=== PATIENT | male | born 1955 | race Caucasian/White ===

== ENCOUNTER 2019-04-26 15:09 | Emergency (ER) | payer MEDICARE, OTHER ==
[2019-04-26 15:17] VITALS: TEMP 98.7
[2019-04-26] MEDS ORDERED: ORPHENADRINE 30 MG/ML 2 ML VIAL IVP STA (15:23)
[2019-04-26] MEDS ORDERED: KETOROLAC 30 MG/ML 1 ML VIAL IVP STA (15:23)
[2019-04-26] MEDS ORDERED: HYDROmorphone 1 MG/ML 1 ML SYRINGE IVP STA (15:23)
[2019-04-26 15:54] LABS: Appearance,Urine Clear (Clear); Bilirubin,Urine Negative (Negative); Blood,Urine Negative (Negative); Color,Urine Yellow; Glucose,Urine (UA) Negative (Negative); Ketones,Urine Negative (Negative); Leukocyte Esterase,Urine Negative (Negative); Nitrite,Urine Negative (Negative); Protein,Urine Negative (Negative); Specific Gravity,Urine 1.019 (1.001-1.035); Urobilinogen,Urine <2.0 mg/dL (<2.0)
--- NOTE | 2019-04-26 16:03 | XR ---
EXAMINATION TYPE: XR lumbar spine 2 or 3V DATE OF EXAM: 04/26/2019 CLINICAL HISTORY: Right-sided low back pain after injury today TECHNIQUE: Frontal and lateral images of the lumbar spine are obtained. COMPARISON: MRI of the lumbar spine dated 07/18/2016 FINDINGS: There is a mild levoscoliosis of the lumbar spine. Overall vertebral body heights appear ma intained of the lumbar spine. Moderate multilevel degenerative disc disease is seen as anterior osteo phytes and facet arthropathy with intervertebral disc space narrowing and endplate sclerosis. T12 jacquie tebral body is suboptimally evaluated for compression fracture given the obliquity from the scoliosis . Diffuse osseous demineralization is present. Cholecystectomy clips are seen. IMPRESSION: No acute fracture or malalignment of the lumbar spine. Levoscoliosis evaluation for verte bral body height of the T12 vertebral body limited. Moderate multilevel degenerative disc disease and generalized osseous demineralization.
--- NOTE | 2019-04-26 16:25 | ED ---
Back Pain HPI - General Chief Complaint: Back Pain/Injury Stated Complaint: Back pain Time Seen by Provider: 04/26/19 15:18 Source: patient, EMS, RN notes reviewed Limitations: no limitations - History of Present Illness Initial Comments: 63-year-old male presents emergency Department chief complaint low back pain. Patient states he is walking and felt a pop in his right low back. Patient states she has no bowel bladder incontinence or retention. Denies any saddle anesthesias or lower shunted paresthesias. Patient states pain does not radiate down his leg. Patient states that any movement makes pain worse. He does have a history of back pain states he used to be on pain meds. Patient has diarrhea, constipation, fever, chills. Patient believes he may have a urinary tract infection though his been taken old and antibiotics for last 4-5 days. - Related Data Previous Rx's Medication Instructions Recorded Cyclobenzaprine [Flexeril] 10 mg PO TID PRN #15 tab 04/26/19 HYDROcodone/APAP 7.5-325MG [[place] 1 tab PO Q6HR PRN 3 Days #12 tab 04/26/19 7.5-325] Ibuprofen [Motrin] 600 mg PO Q8HR PRN #30 tab 04/26/19 Allergies Allergy/AdvReac Type Severity Reaction Status Date / Time No Known Allergies Allergy Verified 04/26/19 15:16 Review of Systems ROS Statement: Those systems with pertinent positive or pertinent negative responses have been documented in the HPI. ROS Other: All systems not noted in ROS Statement are negative. Past Medical History Past Medical History: Chest Pain / Angina Additional Past Medical History / Comment(s): Back problems History of Any Multi-Drug Resistant Organisms: None Reported Past Surgical History: Cholecystectomy Past Psychological History: No Psychological Hx Reported Smoking Status: Never smoker Past Alcohol Use History: Daily Past Drug Use History: None Reported General Exam Limitations: no limitations General appearance: alert, in no apparent distress Head exam: Present: atraumatic, normocephalic, normal inspection Respiratory exam: Present: normal lung sounds bilaterally. Absent: respiratory distress, wheezes, rales, rhonchi, stridor Cardiovascular Exam: Present: regular rate, normal rhythm, normal heart sounds. Absent: systolic murmur, diastolic murmur, rubs, gallop, clicks GI/Abdominal exam: Present: soft, normal bowel sounds. Absent: distended, tenderness, guarding, rebound, rigid Extremities exam: Present: normal inspection, full ROM, normal capillary refill, other (Motrin strength equal bilaterally, neurovascular intact equal color equal warmth). Absent: tenderness, pedal edema, joint swelling, calf tenderness Back exam: Present: normal inspection, tenderness, muscle spasm. Absent: full ROM (Decreased range of motion secondary to pain in the right lumbar region), vertebral tenderness Neurological exam: Present: alert, oriented X3 Skin exam: Present: warm, dry, intact, normal color. Absent: rash Course Vital Signs 04/26/19 15:13 Temperature 98.7 F Pulse Rate 79 Respiratory 22 Rate Blood Pressure 128/74 O2 Sat by Pulse 98 Oximetry Medical Decision Making - Medical Decision Making 63-year-old male presented for low back pain. Patient has a lumbar strain. He has no radicular symptoms no red flag symptoms. Patient discharged with pain meds, muscle relaxers patient will follow-up with PCP return for any worsening symptoms. - Lab Data Lab Results 04/26/19 Range/Units 15:45 Urine Color Yellow Urine Appearance Clear (Clear) Urine pH 7.0 (5.0-8.0) Ur Specific [place] 1.019 (1.001-1.035) Urine Protein Negative (Negative) Urine Glucose (UA) Negative (Negative) Urine Ketones Negative (Negative) Urine Blood Negative (Negative) Urine Nitrite Negative (Negative) Urine Bilirubin Negative (Negative) Urine Urobilinogen <2.0 (<2.0) mg/dL Ur Leukocyte Esterase Negative (Negative) Disposition Clinical Impression: Strain of lumbar region Disposition: HOME SELF-CARE Condition: Stable Instructions (If sedation given, give patient instructions): Acute Low Back Pa in (ED) Additional Instructions: Please return to the Emergency Department if symptoms worsen or any other concerns. Prescriptions: Cyclobenzaprine [Flexeril] 10 mg PO TID PRN #15 tab PRN Reason: Muscle Spasm Ibuprofen [Motrin] 600 mg PO Q8HR PRN #30 tab PRN Reason: Pain HYDROcodone/APAP 7.5-325MG [[place] 7.5-325] 1 tab PO Q6HR PRN 3 Days #12 tab PRN Reason: pain Is patient prescribed a controlled substance at d/c from ED?: Yes When asked, does pt state using other controlled substances?: No If prescribed controlled substance>3 days was MAPS reviewed?: Prescribed <3 Days If opioid is for acute pain is fill amount 7 days or less?: Yes If Rx opioid, was Start Talking consent form obtained?: Yes Referrals: Andreina Peña MD [REFERRING] - 1-2 days Mika Aragon DO [Doctor of Osteopathic Medicine] - 1-2 days Time of Disposition: 16:20
[2019-04-26 16:46] VITALS: BP 148/89; PULSE 76; RESP 18
== END 2019-04-26 16:46 | disposition home or self-care (01) ==
LOC: EC 15:09
DX: S39.012A Strain of muscle, fascia and tendon of lower back, initial encounter (principal); R19.7 Diarrhea, unspecified; R50.9 Fever, unspecified; X58.XXXA Exposure to other specified factors, initial encounter
CPT/HCPCS: 81003; 72100; 99284; 96374; 96375 ×2; J2360; J1885; J1170

== ENCOUNTER 2022-08-07 10:29 | Observation (INO) | payer MEDICARE ==
[2022-08-07] MEDS ORDERED: NITROGLYCERIN SL TABS 0.4 MG TAB SUBLINGUAL STA ×3 (11:07)
--- NOTE | 2022-08-07 11:10 | ED ---
General Adult HPI - General Chief complaint: Chest Pain Stated complaint: Chest pain Time Seen by Provider: 08/07/22 10:59 Source: patient, RN notes reviewed, old records reviewed Mode of arrival: wheelchair Limitations: no limitations - History of Present Illness Initial comments: Patient is a 66-year-old male who presents emergency Department complaining of chest pain. Patient was shoveling snow this morning, approximately 1/2 inch to 1 inch and brushing this no off of his car when he had onset of substernal and left-sided chest pain. Does have a history of angina as well as a thoracic aneurysm. No history of cardiac disease otherwise. No history of stenting. States he has had this previously, but states he felt a little bit different tod ay about the severity so he wanted to come in today to get evaluated. States normally just goes away on its own. States it was worse earlier at 9 out of 10 and is currently a 6 or 7 out of 10. He describes as a achy, sharp, pressure. Poorly described. Does not radiate to the back, shoulder blades, arms. Denies any diaphoresis was started. Denies any nausea or vomiting. Presents for further evaluation at this time. States he is nervous. - Related Data Previous Rx's Medication Instructions Recorded Cyclobenzaprine [Flexeril] 10 mg PO TID PRN #15 tab 04/26/19 HYDROcodone/APAP 7.5-325MG [[place] 1 tab PO Q6HR PRN 3 Days #12 tab 04/26/19 7.5-325] Ibuprofen [Motrin] 600 mg PO Q8HR PRN #30 tab 04/26/19 Allergies Allergy/AdvReac Type Severity Reaction Status Date / Time No Known Allergies Allergy Verified 08/07/22 10:36 Review of Systems ROS Statement: Those systems with pertinent positive or pertinent negative responses have been documented in the HPI. Review of Systems: CONST: Denies fever EYES: Denies blurry vision ENT: Denies nasal congestion C/V: Endorses chest pain RESP: Denies shortness of breath GI: Denies abdominal pain : Denies dysuria SKIN: Denies rash. MSK: Denies joint pain. NEURO: Denies headache ROS Other: All systems not noted in ROS Statement are negative. Past Medical History Past Medical History: Chest Pain / Angina Additional Past Medical History / Comment(s): Back problems, aortic aneurysm. History of Any Multi-Drug Resistant Organisms: None Reported Past Surgical History: Cholecystectomy Past Psychological History: No Psychological Hx Reported Smoking Status: Never smoker Past Alcohol Use History: Daily Past Drug Use History: None Reported General Exam - General Exam Comments Initial Comments: General: Appears in no acute distress. HEAD: Normal with no signs of head trauma. EYES: PERRLA, EOMI, conjunctiva normal, no discharge. ENT: Hearing grossly intact, normal oropharynx. RESPIRATORY: Clear breath sounds bilaterally. No wheezes, rales, or rhonchi. C/V: Regular rate and rhythm. S1 and S2 auscultated, no edema, peripheral pulses 2+ and intact throughout ABD: Abd is soft, nontender, nondistended EXT: Normal range of motion, no obvious deformity SKIN: No rashes or lesions observed on exposed skin. NEURO: Alert and oriented 4. No focal deficits. Limitations: no limitations Course Vital Signs 08/07/22 08/07/22 08/07/22 10:33 11:04 11:53 Temperature 98.2 F 97.5 F L Pulse Rate 92 70 101 H Respiratory 16 16 26 H Rate Blood Pressure 115/82 144/95 116/85 O2 Sat by Pulse 98 99 100 Oximetry 08/07/22 13:09 Temperature Pulse Rate 77 Respiratory 18 Rate Blood Pressure 141/87 O2 Sat by Pulse 97 Oximetry Medical Decision Making - Medical Decision Making Based on the patient's presentation and physical exam, I'm concerned for cardiopulmonary etiology for the patient's current symptoms. He does have a history of thoracic aneurysm I cannot rule out aortic catastrophe at this time and therefore recommend that we obtain a CT angiogram of the aorta. This is in addition to cardiac workup including troponin, EKG, chest x-ray. Patient was in agreement this plan. Aspirin will be held at this time, as I would like to first evaluate for dissection. However we will administer nitroglycerin tablets to see if that has any effect on his pain. Does have history of angina. Has not taken nitro and multiple years. Patient was in agreement this plan. Vital signs are within acceptable limits. EKG shows no signs of acute ischemia.Patient has stated that he believes his aneurysm measurement is approximately 4.3 cm and it has been stable. No plans for intervention at this time. Patient received nitroglycerin tablets, dispensed a mild decrease in blood pressure but states he felt worse with it. We will not administer any further tablets. Patient improved after some time. He does appear anxious and will provide him with a dose of Ativan to see if it helps with his symptoms. He was in agreement this plan. Chest x-ray as interpreted by myself reveals no evidence of acute cardiopulmonary process, infiltrate. Laboratory studies are remarkable for an undetectable troponin.The remainder the patient's laboratory studies are unremarkable. CT angiogram is interpreted by myself reveals an ascending thoracic aneurysm. Radiology meshed it to be 4.4 cm. Patient states that was previously 4.3 cm. This is unchanged. No signs of aortic catastrophe at this time. On reevaluation come patient is feeling improved. I did update him on the results of his workup. Patient's heart score is moderate at 4, and therefore would like to admit him to cardiac observation telemetry. He was in agreement with this plan. I spoke with the admitting [facility] Tawanda physician who accepted the patient. Cardiology was consulted. Echo was ordered. Patient was given an aspirin 324 mg. - Lab Data Result diagrams: 08/07/22 11:18 08/07/22 11:18 Lab Results 08/07/22 08/07/22 08/07/22 Range/Units 11:18 11:18 11:18 WBC 6.5 (3.8-10.6) k/uL RBC 4.88 (4.30-5.90) m/uL Hgb 15.1 (13.0-17.5) gm/dL Hct 43.9 (39.0-53.0) % MCV 90.0 (80.0-100.0) fL MCH 30.8 (25.0-35.0) pg MCHC 34.3 (31.0-37.0) g/dL RDW 12.9 (11.5-15.5) % Plt Count 182 (150-450) k/uL MPV 7.8 Neutrophils % 77 % Lymphocytes % 16 % Monocytes % 5 % Eosinophils % 0 % Basophils % 1 % Neutrophils # 5.0 (1.3-7.7) k/uL Lymphocytes # 1.1 (1.0-4.8) k/uL Monocytes # 0.3 (0-1.0) k/uL Eosinophils # 0.0 (0-0.7) k/uL Basophils # 0.0 (0-0.2) k/uL PT 10.3 (9.0-12.0) sec INR 1.0 (<1.2) APTT 26.4 (22.0-30.0) sec Sodium 139 (137-145) mmol/L Potassium 4.4 (3.5-5.1) mmol/L Chloride 107 (98-107) mmol/L Carbon Dioxide 25 (22-30) mmol/L Anion Gap 7 mmol/L BUN 11 (9-20) mg/dL Creatinine 0.87 (0.66-1.25) mg/dL Est GFR (CKD-EPI)AfAm >90 (>60 ml/min/1.73 sqM) Est GFR (CKD-EPI)NonAf 89 (>60 ml/min/1.73 sqM) Glucose 95 (74-99) mg/dL Calcium 9.1 (8.4-10.2) mg/dL Magnesium 1.9 (1.6-2.3) mg/dL Total Bilirubin 1.1 (0.2-1.3) mg/dL AST 33 (17-59) U/L ALT 20 (4-49) U/L Alkaline Phosphatase 64 (38-126) U/L Troponin I (0.000-0.034) ng/mL Total Protein 7.2 (6.3-8.2) g/dL Albumin 4.5 (3.5-5.0) g/dL 08/07/22 Range/Units 11:18 WBC (3.8-10.6) k/uL RBC (4.30-5.90) m/uL Hgb (13.0-17.5) gm/dL Hct (39.0-53.0) % MCV (80.0-100.0) fL MCH (25.0-35.0) pg MCHC (31.0-37.0) g/dL RDW (11.5-15.5) % Plt Count (150-450) k/uL MPV Neutrophils % % Lymphocytes % % Monocytes % % Eosinophils % % Basophils % % Neutrophils # (1.3-7.7) k/uL Lymphocytes # (1.0-4.8) k/uL Monocytes # (0-1.0) k/uL Eosinophils # (0-0.7) k/uL Basophils # (0-0.2) k/uL PT (9.0-12.0) sec INR (<1.2) APTT (22.0-30.0) sec Sodium (137-145) mmol/L Potassium (3.5-5.1) mmol/L Chloride (98-107) mmol/L Carbon Dioxide (22-30) mmol/L Anion Gap mmol/L BUN (9-20) mg/dL Creatinine (0.66-1.25) mg/dL Est GFR (CKD-EPI)AfAm (>60 ml/min/1.73 sqM) Est GFR (CKD-EPI)NonAf (>60 ml/min/1.73 sqM) Glucose (74-99) mg/dL Calcium (8.4-10.2) mg/dL Magnesium (1.6-2.3) mg/dL Total Bilirubin (0.2-1.3) mg/dL AST (17-59) U/L ALT (4-49) U/L Alkaline Phosphatase (38-126) U/L Troponin I <0.012 (0.000-0.034) ng/mL Total Protein (6.3-8.2) g/dL Albumin (3.5-5.0) g/dL - EKG Data -: EKG Interpreted by Me EKG Comments: 12-lead Electrocardiogram Interpretation Note EKG was reviewed and interpreted by myself. 12-lead ECG performed at 1044 is interpreted by me as revealing normal sinus rhythm at a rate of 68 beats per minute. [place] is normal. OR interval is 152 ms, QRS duration is 114 ms, QTc is 428 ms.. There were no ST or T wave abnormalities to suggest myocardial ischemia or injury. R wave progression across the precordium was satisfactory. By my interpretation this EKG is non-diagnostic for acute ischemia. No prior EKG for comparison. Disposition Clinical Impression: Chest pain, Thoracic ascending aortic aneurysm Disposition: ADMITTED IP TO THIS HOSP Condition: Stable Referrals: Low Bolanos NPC [Family Provider] - 1-2 days Time of Disposition: 13:35
[2022-08-07] MEDS ORDERED: LORazepam 0.5 MG TAB PO STA (11:40)
[2022-08-07 11:56] LABS: ALT 20 U/L (4-49); AST 33 U/L (17-59); African American GFR (CKD) >90 (>60 ml/min/1.73 sqM); Albumin 4.5 g/dL (3.5-5.0); Alkaline Phosphatase 64 U/L (38-126); Anion Gap 7 mmol/L; Blood Urea Nitrogen 11 mg/dL (9-20); Calcium 9.1 mg/dL (8.4-10.2); Carbon Dioxide 25 mmol/L (22-30); Chloride 107 mmol/L (98-107); Glucose 95 mg/dL (74-99); Magnesium 1.9 mg/dL (1.6-2.3); Non-African American GFR(CKD) 89 (>60 ml/min/1.73 sqM); Potassium 4.4 mmol/L (3.5-5.1); Sodium 139 mmol/L (137-145); Total Bilirubin 1.1 mg/dL (0.2-1.3); Total Protein 7.2 g/dL (6.3-8.2)
[2022-08-07 11:59] LABS: Partial Thromboplastin Time 26.4 sec (22.0-30.0); Prothrombin Time 10.3 sec (9.0-12.0)
[2022-08-07 12:12] LABS: Basophils % (A) 1 %; Eosinophils % (A) 0 %; HCT 43.9 % (39.0-53.0); HGB 15.1 gm/dL (13.0-17.5); Lymphocytes # (A) 1.1 k/uL (1.0-4.8); Lymphocytes % (A) 16 %; MCH 30.8 pg (25.0-35.0); MCHC 34.3 g/dL (31.0-37.0); Mean Platelet Volume 7.8; Monocytes # (A) 0.3 k/uL (0-1.0); Monocytes % (A) 5 %; Neutrophils % (A) 77 %; Platelet Count 182 k/uL (150-450); RBC 4.88 m/uL (4.30-5.90); RDW 12.9 % (11.5-15.5); WBC 6.5 k/uL (3.8-10.6)
--- NOTE | 2022-08-07 12:29 | XR ---
EXAMINATION TYPE: XR chest 2V DATE OF EXAM: 08/07/2022 12:23 PM COMPARISON: None TECHNIQUE: XR chest 2V Frontal and lateral views of the chest. CLINICAL INDICATION:Male, 66 years old with history of Chest Pain; FINDINGS: Lungs/Pleura: There is no evidence of pleural effusion, focal consolidation, or pneumothorax. Pulmonary vascularity: Unremarkable. Heart/mediastinum: Cardiomediastinal silhouette is unremarkable. Musculoskeletal: No acute osseous pathology. IMPRESSION: No acute cardiopulmonary disease/process.
--- NOTE | 2022-08-07 13:16 | CT ---
EXAMINATION TYPE: CT angio thor/abd pel aorta CT DLP: 2070.6 mGycm, Automated exposure control for dose reduction was used. DATE OF EXAM: 08/07/2022 12:31 PM COMPARISON: . CLINICAL INDICATION:Male, 66 years old with history of history of thoracic aneurysm, eval for dissect io, history of thoracic aneurysm, eval for dissection TECHNIQUE: Dissection protocol: Multiple axial CT images of the chest, abdomen, and pelvis were obtai matheus prior and to the administration of IV contrast. 3-D reformats and maximum intensity projection fo rmat were performed on a separate workstation. Contrast used:100 mL of Isovue 370 without and with IV Contrast, Oral contrast used: FINDINGS: ARTERIAL VASCULATURE: No evidence for intramural hematoma on noncontrast imaging. The ascending thora cic aorta measures up to 4.4 cm with smooth tapering. Vessels of the aortic arch are patent. The desc ending thoracic aorta and into abdominal aorta are within normal limits for size. The major vessels o f the abdominal aorta are patent. No evidence of intimal flap or dissection. The common iliac arterie s and external iliac arteries are patent. PULMONARY ARTERIAL VASCULATURE: Normal caliber. No evidence of filling defect to suggest pulmonary em bolus. VENOUS SYSTEM: Unremarkable. Lungs/pleura: The lung parenchyma appears unremarkable. No focal consolidation, pneumothorax or pleu ral effusion. Heart: mildly enlarged for size. Mediastinum: No gross evidence of adenopathy. Lower Neck: No significant findings. Abdomen: Liver: Unremarkable. Gallbladder and Bile ducts: Gallbladder surgically absent. Pancreas: Unremarkable. Spleen: Unremarkable. Adrenal glands: Unremarkable. Kidneys and Ureters: Right renal cyst. No hydronephrosis. Bladder: Unremarkable. Reproductive: Unremarkable. Stomach and Bowel: Moderate stool burden throughout the colon. No evidence of bowel obstruction. Appe ndix is normal. Peritoneum: No evidence of pneumoperitoneum, free fluid, or adenopathy. Musculoskeletal: The osseous structures appear intact. Multilevel disc degeneration and facet joint a rthropathy throughout the spine with mild scoliosis changes. Lymph nodes: No evidence of lymphadenopathy. Abdominal wall/soft tissues: Unremarkable. IMPRESSION: 1. No evidence for thoracic aortic dissection. 2. Mild ectasia of the ascending thoracic aorta measuring up to 44 mm. 3. Mild atherosclerosis. 4. Moderate to large stool burden throughout the colon. 5. Mild cardiomegaly.
[2022-08-07] MEDS ORDERED: ASPIRIN 81 MG PO STA (13:45)
[2022-08-07] MEDS ORDERED: NALOXONE 0.4 MG/ML 1 ML VIAL IV PRN (13:46)
[2022-08-07] MEDS ORDERED: bisacodyL 5 MG TABLET.DR PO STA (14:12)
--- NOTE | 2022-08-07 14:47 | P.HPIM ---
History of Present Illness H&P Date: 08/07/22 History of Presenting Illness: Patient is a very pleasant 66-year-old male with a past medical history of angina, hyperlipidemia and ascending thoracic aneurysm with most recent measurement known to patient at 4.3 cm follows up outpatient with his PCP niko redman. Patient presented to the emergency department with a chief complaint of chest pain/pressure. Patient reports he was shoveling snow this morning and cleaning the snow off of his car when he began having an acute onset left anterior chest pain. Patient describes this pain as being heavy and sharp. He denied any radiation of pain, denied anything making it better or worse, he denied any associated symptoms including dizziness, lightheadedness, diaphoresis, palpitations, shortness of breath, nausea, or experiencing any numbness/tingling/weakness in his extremities. Patient came to the ER for evaluation and upon arrival vital signs unremarkable with blood pressure 115/82, heart rate 92, respiratory rate 16, and SpO2 of 98% on room air. He underwent full evaluation. CBC, coags, and CMP completed and upon review were unremarkable. Troponin less than 0.012. EKG reviewed showing NSR at 68 bmp with no noted T-wave or ST abnormalities showing no signs of acute ischemia, CXR neg, CTA confirming previously known ascending thoracic aortic aneurysm measuring up to 44 mm, mild atherosclerosis, mild cardiomegaly and moderate to large stool burden throughout the colon. Patient was given aspirin and sublingual nitroglycerin in the emergency department. After administration of nitroglycerin patient had episode of tachypnea and tachycardia and reported feeling worsening pain and patient was reportedly given Ativan resulting in improvement of pain, tachypnea, and tachycardia back to baseline. Patient admitted under our services with consultation to cardiology. Review of systems: Pertinent positives and negatives as discussed in HPI, a complete review of systems was performed and all other systems are negative. Physical exam: Vital signs reviewed and stable. General: Nontoxic, no distress and appears stated age. Derm: Skin warm and dry, normal coloration for ethnicity. Head: Atraumatic, normocephalic and symmetric. Eyes: EOMs intact, no lid lag, and anicteric sclera Mouth: no lip lesions, mucus membranes moist Cardiovascular: regular rate and rhythm with normal S1S2, no murmur, positive posterior tibial pulses bilaterally, and cap refill < 2 seconds. Lungs: Respirations even, regular, and unlabored on room air. Lungs CTA bilaterally, no rhonchi, no rales, no wheezing, and no accessory muscle usage. Abdominal: soft, nontender to palpation, no guarding, no appreciable orga nomegaly Ext: ROM intact. No gross muscle atrophy, no edema, no contractures Neuro: Speech clear, face symmetrical and CN II-XII grossly intact with no noted focal neuro deficits Psych: Alert and oriented to person, place, time, and situation. Appropriate and pleasant affect. Assessment and Plan of Care: Chest pain, rule out acute coronary event Hyperlipidemia Ascending thoracic aortic aneurysm -Cardiology consulted, appreciate further recommendations -Telemetry monitoring -Trend troponins -Cardiac diet, NPO at midnight -Continue cardiac medication regimen with aspirin, atorvastatin, -Lipid profile with a.m. labs. -Echocardiogram -Patient to follow up outpatient with cardiothoracic surgery for long-term monitoring/management of ascending aortic aneurysm. The patient is admitted with an anticipated less than 2 midnight stay for evaluation of chest pain CODE STATUS: Full code DVT prophylaxis: Heparin Discussed with: Patient, emergency physician and RN Anticipated discharge date: 1-[address]: Home A total of 45 minutes was spent on the care of this complex patient more than 50% of the time was spent in counseling and care coordination. Maurizio Vieira NP rendered care for this patient independently, reviewed the findings and plan as documented in the note above. I did not physically speak with or examine the patient on this date. Past Medical History Past Medical History: Chest Pain / Angina Additional Past Medical History / Comment(s): Back problems, aortic aneurysm. History of Any Multi-Drug Resistant Organisms: None Reported Past Surgical History: Cholecystectomy Past Psychological History: No Psychological Hx Reported Smoking Status: Never smoker Past Alcohol Use History: Daily Past Drug Use History: None Reported Medications and Allergies Home Medications Medication Instructions Recorded Confirmed Type Loperamide HCl [Imodium A-D] 2 mg PO QID PRN 08/07/22 08/07/22 History Rosuvastatin Calcium 5 mg PO HS 08/07/22 08/07/22 History Simethicone [Gas-X] 125 mg PO ACHS PRN 08/07/22 08/07/22 History Allergies Allergy/AdvReac Type Severity Reaction Status Date / Time No Known Allergies Allergy Verified 08/07/22 13:57 Physical Exam Osteopathic Statement: *. No significant issues noted on an osteopathic structural exam other than those noted in the History and Physical/Consult. Vitals: Vital Signs Temp Pulse Resp BP Pulse Ox 08/07/22 13:09 77 18 141/87 97 08/07/22 11:53 101 H 26 H 116/85 100 08/07/22 11:04 97.5 F L 70 16 144/95 99 08/07/22 10:33 98.2 F 92 16 115/82 98 Intake and Output 08/06/22 08/07/22 08/07/22 22:59 06:59 14:59 Other: Weight 99.79 kg Results CBC & Chem 7: 08/07/22 11:18 08/07/22 11:18
[2022-08-07] MEDS: HEPARIN SODIUM,PORCINE/PF 5,000 UNIT/0.5 ML SYRINGE SQ SCH ×2 (15:39→23:59)
[2022-08-07] MEDS: ATORVASTATIN 10 MG TAB PO SCH (20:41)
[2022-08-08] MEDS ORDERED: CAFFEINE CITRATE 60 MG/3 ML VIAL IV PRN (08:19)
[2022-08-08] MEDS ORDERED: AMINOPHYLLINE 500 MG/20 ML VIAL IV PRN (08:19)
[2022-08-08] MEDS ORDERED: REGADENOSON 0.4 MG/5 ML SYRINGE IV PRN (08:19)
[2022-08-08] MEDS ORDERED: ASPIRIN 81 MG PO SCH (09:00)
[2022-08-08 09:06] LABS: Basophils # (A) 0.03 X 10*3/uL (0.00-0.10); Basophils % (A) 0.4 %; Eosinophils # (A) 0.01 X 10*3/uL (0.04-0.35); Eosinophils % (A) 0.1 %; HCT 44.2 % (39.6-50.0); HGB 14.9 g/dL (13.0-17.0); Immature Grans, Automated 0.3 %; Lymphocytes # (A) 1.44 X 10*3/uL (0.90-5.00); Lymphocytes % (A) 20.5 %; MCH 30.1 pg (27.0-32.0); MCHC 33.7 g/dL (32.0-37.0); MCV 89.3 fL (80.0-97.0); Mean Platelet Volume 9.6 fL (9.5-12.2); Monocytes % (A) 7.1 %; NRBC Per 100 WBC 0 /100 WBCS (0.0-0.0); Neutrophils # (A) 5.01 X 10*3/uL (1.80-7.70); Neutrophils % (A) 71.6 %; Platelet Count 171 X 10*3/uL (140-440); RBC 4.95 X 10*6/uL (4.40-5.60); RDW 12.4 % (11.5-14.5); WBC 7.01 X 10*3/uL (4.50-10.00)
[2022-08-08 09:07] LABS: African American GFR (CKD) 101.4 (60.0-200.0); Anion Gap 9.2 mmol/L (10.00-18.00); BUN/Creat Ratio 12.67 Ratio (12.00-20.00); Blood Urea Nitrogen 11.4 mg/dL (9.0-27.0); Calcium 9.3 mg/dL (8.7-10.3); Carbon Dioxide 24.8 mmol/L (20.0-27.5); Non-African American GFR(CKD) 87.5 (60.0-200.0); Potassium 4.4 mmol/L (3.5-5.5)
--- NOTE | 2022-08-08 10:45 | P.CRDCN ---
History of Present Illness Consult date: 08/08/22 Consult reason: chest pain History of present illness: History of present illness: This is a 66-year-old male with past medical history of hyperlipidemia. Patient has history of seeing a yard worker approximately 4-5 years ago. He complains of dizziness and soreness in the left side of his chest which he has had for at least 5 years and had evaluated. He states he saw a yard worker and the EKG was done and he was scheduled for an MRI. He denies having a recent stress test or cardiac catheterization. He denies any change in the chest pain or dizziness. He does not check his blood pressure at home. EKG sinus rhythm with no acute ST changes Chest x-ray reveals no acute cardio pulmonary process CT angiogram of the aorta revealed no evidence of thoracic aortic dissection. 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 Mild atherosclerosis. Moderate to large stool burden. Mild cardiomegaly. CBC is unremarkable. Electrolytes and renal function within normal limits. Troponin negative 3 Home cardiac medications: Rosuvastatin 5 mg at bedtime Review Of Systems: At the time of my evaluation Constitutional: No fever, no chills. No weakness, fatigue or lethargy. EENT: No headache. No dizziness. Lungs: No shortness of breath, cough, no sputum production. No wheezing. Cardiovascular: Reports chest pain, no lower extremity edema. No palpitations. No paroxysmal nocturnal dyspnea. No orthopnea. Reports dizziness. No syncopal episodes. Abdominal: No abdominal pain. No nausea, vomiting. No diarrhea. No constipation. No bloody or tarry stools.. No loss of appetite. Musculoskeletal: No myalgias. No muscle weakness, no gait dysfunction, no frequent falls. No back pain. No neck pain. Integumentary: No wounds, no lesions. No rash or pruritus. No unusual bruising. Neurologic: No aphasia. No facial droop. No change in mentation. No head injury. No headache. No paralysis. No paresthesia. Psychiatric: No depression. No anxiety. Endocrine: No abnormal blood sugars. Physical examination: Gen: This is a 66-year-old male. He is resting in bed and appears c omfortable and in no acute distress. VS: Reviewed HEENT: Head is atraumatic, normocephalic. Pupils equal, round. Sclerae is anicteric. NECK: Supple. No JVD. No lymphadenopathy. No thyromegaly. LUNGS: Clear to auscultation. No wheezes or rhonchi. No intercostal retractions. HEART: Regular rate and rhythm. No murmur. ABDOMEN: Soft. Bowel sounds are present. No masses. No tenderness. EXTREMITIES: No pedal edema. No calf tenderness. NEUROLOGICAL: Patient is awake, alert and oriented x3. Cranial nerves 2 through 12 are grossly intact. 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 Thank you kindly for this consultation. Nurse practitioner note has been reviewed, I agree with documented findings and plan of care. Patient was seen and examined. Past Medical History Past Medical History: Chest Pain / Angina Additional Past Medical History / Comment(s): Back problems, aortic aneurysm. History of Any Multi-Drug Resistant Organisms: None Reported Past Surgical History: Cholecystectomy Past Psychological History: No Psychological Hx Reported Smoking Status: Never smoker Past Alcohol Use History: Daily Past Drug Use History: None Reported Medications and Allergies Home Medications Medication Instructions Recorded Confirmed Type Loperamide HCl [Imodium A-D] 2 mg PO QID PRN 08/07/22 08/07/22 History Rosuvastatin Calcium 5 mg PO HS 08/07/22 08/07/22 History Simethicone [Gas-X] 125 mg PO ACHS PRN 08/07/22 08/07/22 History Allergies Allergy/AdvReac Type Severity Reaction Status Date / Time No Known Allergies Allergy Verified 08/07/22 13:57 Physical Exam Vitals: Vital Signs Temp Pulse Pulse Resp BP BP Pulse Ox 08/08/22 01:41 97.6 F 66 12 114/70 96 08/07/22 19:56 97.6 F 66 12 99/60 93 L 08/07/22 14:51 97.6 F 97 18 173/97 97 08/07/22 13:09 77 18 141/87 97 08/07/22 11:53 101 H 26 H 116/85 100 08/07/22 11:04 97.5 F L 70 16 144/95 99 08/07/22 10:33 98.2 F 92 16 115/82 98 Intake and Output 08/07/22 08/08/22 08/08/22 22:59 06:59 14:59 Intake Total 200 Balance 200 Intake: Oral 200 Other: Voiding Method Toilet # Voids 1 2 Results 08/08/22 06:13 08/08/22 06:13 Cardiac Enzymes 08/07/22 08/07/22 08/07/22 Range/Units 11:18 11:18 14:13 AST 33 (17-59) U/L Troponin I <0.012 <0.012 (0.000-0.034) ng/mL 08/07/22 Range/Units 18:28 AST (17-59) U/L Troponin I <0.012 (0.000-0.034) ng/mL Coagulation 08/07/22 Range/Units 11:18 PT 10.3 (9.0-12.0) sec APTT 26.4 (22.0-30.0) sec CBC 08/07/22 Range/Units 11:18 WBC 6.5 (3.8-10.6) k/uL RBC 4.88 (4.30-5.90) m/uL Hgb 15.1 (13.0-17.5) gm/dL Hct 43.9 (39.0-53.0) % Plt Count 182 (150-450) k/uL Comprehensive Metabolic Panel 08/07/22 Range/Units 11:18 Sodium 139 (137-145) mmol/L Potassium 4.4 (3.5-5.1) mmol/L Chloride 107 (98-107) mmol/L Carbon Dioxide 25 (22-30) mmol/L BUN 11 (9-20) mg/dL Creatinine 0.87 (0.66-1.25) mg/dL Glucose 95 (74-99) mg/dL Calcium 9.1 (8.4-10.2) mg/dL AST 33 (17-59) U/L ALT 20 (4-49) U/L Alkaline Phosphatase 64 (38-126) U/L Total Protein 7.2 (6.3-8.2) g/dL Albumin 4.5 (3.5-5.0) g/dL Current Medications Generic Name Dose Route Start Last Admin Trade Name Freq PRN Reason Stop Dose Admin Aspirin 81 mg 08/08/22 09:00 Aspirin 81 Mg PO DAILY LIZETT Atorvastatin Calcium 10 mg 08/07/22 21:00 08/07/22 20:41 Atorvastatin 10 Mg Tab PO 10 mg HS LIZETT Administration Heparin Sodium (Porcine) 5,000 unit 08/07/22 16:00 08/07/22 23:59 Heparin Sodium,Porcine/Pf 5,000 Unit/0.5 Ml Syringe SQ 5,000 unit Q8HR LIZETT Administration Naloxone HCl 0.2 mg 08/07/22 13:46 Naloxone 0.4 Mg/Ml 1 Ml Vial IV Q2M PRN Opioid Reversal Intake and Output 08/07/22 08/08/22 08/08/22 22:59 06:59 14:59 Intake Total 200 Balance 200 Intake: Oral 200 Other: Voiding Method Toilet # Voids 1 2 08/07/22 11:18 08/07/22 11:18
[2022-08-08] MEDS: HEPARIN SODIUM,PORCINE/PF 5,000 UNIT/0.5 ML SYRINGE SQ SCH ×3 (12:07→20:14)
--- NOTE | 2022-08-08 12:14 | CA ---
Exercise Stress Test Report Name: Danilo Mazariegos Exam Date: 08/08/2022 10:31 Exam Location: [place] Stress Ht (in): 75 Wt (lb): 220 BSA: 2.29 Ordering Phys: Joceline Hurst Referring Phys: SEGUNDO, Technologist: Taya Macdonald RDCS Age: 66 Gender: M : 1955 Procedure CPT: Indications: Reflex order-Stress test ICD-10 Codes: Patient History: cp, dm, palpitations Medications: Meds past 24 hrs: Pretest Chest Pain: STRESS TEST Protocol Exercise Duration (min:sec): 04:[address] Depressions (mm): Angina Score: Rodrigues Score: Resting HR (bpm): 71 Peak HR (bpm): 99 Resting BP (mmHg): 149 / 90 Peak BP (mmHg): 121 / 81 MPHR: 152 Target HR: 129 % MPHR: 65 METS: 1.0 Total Dose: Peak Dose: Atropine: Double Product: 59351 BP Response: Stress Termination: Stress Symptoms: Stress Summary: ECG ANALYSIS Resting ECG: Stress ECG: CONCLUSIONS No diagnostic electrocardiogram stress testing Dr. Wilberto Askew MD (Electronically Signed) Final Date: 08 August 2022 12:14
--- NOTE | 2022-08-08 12:16 | CA ---
Transthoracic Echo Report Name: Danilo Mazariegos Age: 66 Gender: M : 1955 Exam Date: 08/08/2022 08:45 Exam Location: [place] Echo Ht (in): 75 Wt (lb): 220 Ordering Physician: Maurizio Vieira Attending/Referring Phys: Pharmacist Helper Debi Medrano RDCS Procedure CPT: Indications: CP Cardiac Hx: Technical Quality: Fair Contrast 1: Total Dose (mL): Contrast 2: Total Dose (mL): MEASUREMENTS (Male / Female) Normal Values 2D ECHO LV Diastolic Diameter PLAX 5.6 cm 4.2 - 5.9 / 3.9 - 5.3 cm LV Systolic Diameter PLAX 2.9 cm IVS Diastolic Thickness 1.5 cm 0.6 - 1.0 / 0.6 - 0.9 cm LVPW Diastolic Thickness 1.2 cm 0.6 - 1.0 / 0.6 - 0.9 cm LV Relative Wall Thickness 0.5 RV Internal Dim ED PLAX 4.2 cm LA Volume 105.3 cm??? 18 - 58 / 22 - 52 cm??? M-MODE Aortic Root Diameter MM 4.7 cm AV Cusp Separation MM 2.9 cm DOPPLER AV Peak Velocity 134.3 cm/s AV Peak Gradient 7.2 mmHg AV Mean Velocity 90.9 cm/s AV Mean Gradient 3.7 mmHg AV Velocity Time Integral 29.8 cm AI Peak Velocity 437.0 cm/s AI Peak Gradient 76.4 mmHg AI Pressure Half Time 376.1 ms MV Area PHT 2.7 cm??? Mitral E Point Velocity 56.7 cm/s Mitral A Point Velocity 60.7 cm/s Mitral E to A Ratio 0.9 MV Deceleration Time 283.5 ms MV E' Velocity 5.7 cm/s Mitral E to MV E' Ratio 9.9 TR Peak Velocity 276.1 cm/s TR Peak Gradient 30.5 mmHg Right Ventricular Systolic Press 35.5 mmHg FINDINGS Left Ventricle Moderately increased left ventricular wall thickness. Normal left ventricular systolic function with no obvious regional wall motion abnormalities. Left ventricular ejection fraction is estimated at 55-60 %. Right Ventricle Moderate right ventricular dilatation. Mild pulmonary hypertension. Right Atrium Normal right atrial size. Left Atrium Severely increased left atrial volume. Mitral Valve [id number] mitral regurgitation. Centrally directed mitral regurgitation jet. Aortic Valve Trileaflet aortic valve. Mild aortic regurgitation. Tricuspid Valve Structurally normal tricuspid valve. Trace tricuspid regurgitation. Pulmonic Valve Trace pulmonic regurgitation. Pericardium No pericardial effusion. Aorta Aortic dilatation. 4.7cm CONCLUSIONS Normal left ventricular dimension and systolic function [id number] mitral regurgitation Mild aortic regurgitation Previewed by: Dr. Wilberto Askew MD (Electronically Signed) Final Date: 08 August 2022 12:15
--- NOTE | 2022-08-08 12:35 | NM ---
EXAMINATION TYPE: NM stress lexiscan cardiolite DATE OF EXAM: 08/08/2022 COMPARISON: NONE HISTORY: Chest pain and difficulty breathing heart palpitations TECHNIQUE: After the intravenous administration of 9.4 mCi Tc 99m Sestamibi - Cardiolite resting SPE CT images acquired 80 minutes post injection. At peak stress 25.6 mCi Tc 99m Sestamibi - Stress images obtained 40 minutes post injection The patient was stressed with 0.4mg Lexiscan. FINDINGS: No fixed defects are evident. No reversible stress defects on Spect images. Wall motion is normal. Ejection fraction is calculated to be 58 %. IMPRESSION: 1. No stress-induced ischemic changes evident.
--- NOTE | 2022-08-08 13:39 | P.DS ---
Providers Date of admission: 08/07/22 13:46 Expected date of discharge: 08/08/22 Attending physician: Winnie Hays DO Consults: 08/07/22 13:46 Consult Physician Routine Consulting Provider: [facility] Consult Reason/Comments: chest pain Do you want consulting provider notified?: Yes Primary care physician: [facility] Course: Discharge Diagnosis: Chest pain, acute coronary event ruled out. Troponins negative at less than 0.0123 draws. Echocardiogram revealing normal EF of 55-60% with mild to moderate mitral regurgitation and mild aortic regurgitation. Stress test and Lexiscan stress test were negative showing no scintigraphic evidence for stress- induced ischemic changes. Recommended follow-up with cardiology in 1-2 weeks. Hyperlipidemia, continue daily medication regimen with rosuvastatin. Ascending thoracic aortic aneurysm. CTA confirming previously known ascending thoracic aortic aneurysm measuring up to 44 mm, mild atherosclerosis, mild cardiomegaly and moderate to large stool burden throughout the colon. Patient to follow up outpatient after discharge with cardiothoracic surgery for long- term monitoring/management of ascending aortic aneurysm. Hospital Course: Patient is a very pleasant 66-year-old male with a past medical history of angina, hyperlipidemia and ascending thoracic aneurysm with most recent measurement known to patient at 4.3 cm follows up outpatient with his PCP yearly. Patient presented to the emergency department with a chief complaint of chest pain/pressure. Patient reports he was shoveling snow this morning and cleaning the snow off of his car when he began having an acute onset left anterior chest pain. Patient describes this pain as being heavy and sharp. He denied any radiation of pain, denied anything making it better or worse, he denied any associated symptoms including dizziness, lightheadedness, diaphoresis, palpitations, shortness of breath, nausea, or experiencing any numbness/tingling/weakness in his extremities. Patient came to the ER for evaluation and upon arrival vital signs unremarkable with blood pressure 115/82, heart rate 92, respiratory rate 16, and SpO2 of 98% on room air. He underwent full evaluation. CBC, coags, and CMP completed and upon review were unremarkable. Troponin less than 0.012. EKG reviewed showing NSR at 68 bmp with no noted T-wave or ST abnormalities showing no signs of acute ischemia, CXR neg, CTA confirming previously known ascending thoracic aortic aneurysm measuring up to 44 mm, mild atherosclerosis, mild cardiomegaly and moderate to large stool burden throughout the colon. Patient was given aspirin and sublingual nitroglycerin in the emergency department. After administration of nitroglycerin patient had episode of tachypnea and tachycardia and reported feeling worsening pain and patient was reportedly given Ativan resulting in improvement of pain, tachypnea, and tachycardia back to baseline. Patient admitted under our services with consultation to cardiology. Troponins trended overnight all negative at less than 0.0 into 3 draws. Echocardiogram revealing normal EF of 55-60% with mild to moderate mitral regurgitation and mild aortic regurgitation. Stress test and Lexiscan stress test were negative showing no scintigraphic evidence for stress-induced ischemic changes. Cardiology with no further recommendations at this time recommending outpatient follow-up in their office. Medically, patient is stable for discharge and to follow up outpatient with PCP in 1-2 days and cardiology in 1 week. Physical exam: Vital signs reviewed and stable. General: Nontoxic, no distress and appears stated age. Derm: Skin warm and dry, normal coloration for ethnicity. Head: Atraumatic, normocephalic and symmetric. Eyes: EOMs intact, no lid lag, and anicteric sclera Mouth: no lip lesions, mucus membranes moist Cardiovascular: regular rate and rhythm with normal S1S2, no murmur, positive posterior tibial pulses bilaterally, and cap refill < 2 seconds. Lungs: Respirations even, regular, and unlabored on room air. Lungs CTA bilaterally, no rhonchi, no rales, no wheezing, and no accessory muscle usage. Abdominal: soft, nontender to palpation, no guarding, no appreciable organo megaly Ext: ROM intact. No gross muscle atrophy, no edema, no contractures Neuro: Speech clear, face symmetrical and CN II-XII grossly intact with no noted focal neuro deficits Psych: Alert and oriented to person, place, time, and situation. Appropriate and pleasant affect. A total of 32 minutes of time were spent preparing this complex discharge summary. Pt was discharged on 08/08/22 at 1:36 PM Maurizio Vieira NP rendered care for this patient independently, reviewed the findings and plan as documented in the note above. I did not physically speak with or examine the patient on this date. Patient Condition at Discharge: Stable Plan - Discharge Summary Discharge Rx Participant: No New Discharge Prescriptions: New Aspirin 81 mg PO DAILY 30 Days #30 tab Continue Simethicone [Gas-X] 125 mg PO ACHS PRN PRN Reason: GAS/BLOATING Rosuvastatin Calcium 5 mg PO HS Loperamide HCl [Imodium A-D] 2 mg PO QID PRN PRN Reason: Diarrhea Discharge Medication List Loperamide HCl [Imodium A-D] 2 mg PO QID PRN 08/07/22 [History] Rosuvastatin Calcium 5 mg PO HS 08/07/22 [History] Simethicone [Gas-X] 125 mg PO ACHS PRN 08/07/22 [History] Aspirin 81 mg PO DAILY 30 Days #30 tab 08/08/22 [Rx] Follow up Appointment(s)/Referral(s): Wilberto Askew MD [STAFF PHYSICIAN] - 2 Weeks Low Bolanos NPC [Family Provider] - 1-2 days Patient Instructions/Handouts: Chest Pain (DC) Activity/Diet/Wound Care/Special Instructions: Activity: As tolerated. Take breaks as needed. Diet: Heart healthy and carb consistent diet. Avoid salts, or foods with hidden salts such as canned or boxed foods and frozen dinners. Extra salt makes your heart work harder and traps the fluid in your body for longer. Special Instructions: Take all of your medications as directed and remember to keep all of your doctor's appointments and follow-up as needed. Thank you for allowing us to participate in your care, it was truly a pleasure having you for our patient!!! Discharge Disposition: HOME SELF-CARE
[2022-08-08 13:47] LABS: Glucose,Whole Blood 150 mg/dL (70-110)
[2022-08-08] MEDS ORDERED: SODIUM CHLORIDE 0.9% 1,000 ML IV ONE (13:57)
[2022-08-08] MEDS: SODIUM CHLORIDE 0.9% 1,000 ML IV SCH ×2 (15:40→23:07)
[2022-08-08] MEDS: ATORVASTATIN 10 MG TAB PO SCH (20:14)
[2022-08-09 04:28] VITALS: BP 165/98; PULSE 58; RESP 17; TEMP 97.5
[2022-08-09] MEDS ORDERED: QUEtiapine 50 MG TAB PO STA (04:34)
--- NOTE | 2022-08-09 05:41 | P.EN ---
Informed by the patient's RN at 2:46 AM that the patient had been agitated and hyperverbal throughout the night. As per her, the patient was talking about aliens being at his house and being concerned about chemical leaks in the hospital and at his home. My initial impression was that the patient is likely experiencing hospital-acquired delirium and I recommended continued observation at that time. The RN subsequently notified me at 4:02 AM with the patient is dressed and wanting to leave at 7 AM. She again reiterated that he is planning to leave at 7 AM to go home and that she was concerned since he had mentioned seeing aliens at his house, although he now denied ever saying this to her. I ordered a single dose of Seroquel by mouth shortly after. I was subsequently notified at 4:43 AM that the patient had signed his AMA paperwork and left the hospital. I immediately notified the RN to contact security who were unable to locate the patient. I subsequently contacted [facility] and will move forward with a petition to have an EPS evaluation performed for the patient.
--- NOTE | 2022-08-09 07:52 | P.DS ---
Providers Date of admission: 08/07/22 13:46 Expected date of discharge: 08/09/22 Attending physician: Winnie Hays DO Consults: 08/07/22 13:46 Consult Physician Routine Consulting Provider: [facility] Consult Reason/Comments: chest pain Do you want consulting provider notified?: Yes Primary care physician: [facility] Course: Diagnosis: I was not involved in this patients care. I created this discharge summary to document the patients hospital stay after that patient had already left the hospital. Patient was not discharged, the nurse allowed him to sign out AMA. Symptomatic hypotension Fall Chest Pain HLD Ascending thoracic aortic aneurysm Constipation Hospital Course: Patient is a 66-year-old male with angina, hyperlipidemia and ascending thoracic aneurysm who presented to the emergency department with chest pain. In the ED, he underwent an extensive evaluation. On arrival his vital signs were unremarkable. Laboratory analysis revealed an unremarkable CBC, coags, and CMP. Troponin less than 0.012. EKG was non ischemic, CXR neg, CTA confirming previously known ascending thoracic aortic aneurysm. Patient was given aspirin and sublingual nitroglycerin in the emergency department. After administration of nitroglycerin patient had episode of tachypnea and tachycardia and reported feeling worsening pain, subsequently the patient was reportedly given Ativan resulting in improvement of pain, tachypnea, and tachycardia back to baseline. Patient was placed in observation and cardiology was consulted. Serial Troponins remained negative. Echocardiogram revealed normal EF of 55-60% with mild to moderate mitral regurgitation and mild aortic regurgitation. Stress test and Lexiscan stress test were negative showing no scintigraphic evidence for stress- induced ischemic changes. Cardiology cleared the patient and discharge orders were written. Shortly after, the patient had an unwitnessed fall where he reported feeling dizzy and was found to have a BP of 59/40. He was started on IV fluids and discharged was canceled. Later that evening nursing notified configuration manager of concerns of hallucinations, when these did not naresh he was evaluated by configuration manager and seroquel was ordered. Shortly after the nurse allowed the patient to sign out AMA before he could be reevaluated by a physician. The police were notified to preform a well check on Mr. Mazariegos. Patient Condition at Discharge: Stable Plan - Discharge Summary Discharge Rx Participant: No New Discharge Prescriptions: New Aspirin 81 mg PO DAILY 30 Days #30 tab Continue Simethicone [Gas-X] 125 mg PO ACHS PRN PRN Reason: GAS/BLOATING Rosuvastatin Calcium 5 mg PO HS Loperamide HCl [Imodium A-D] 2 mg PO QID PRN PRN Reason: Diarrhea Discharge Medication List Loperamide HCl [Imodium A-D] 2 mg PO QID PRN 08/07/22 [History] Rosuvastatin Calcium 5 mg PO HS 08/07/22 [History] Simethicone [Gas-X] 125 mg PO ACHS PRN 08/07/22 [History] Aspirin 81 mg PO DAILY 30 Days #30 tab 08/08/22 [Rx] Follow up Appointment(s)/Referral(s): Wilberto Askew MD [STAFF PHYSICIAN] - 2 Weeks Low Bolanos NPC [Family Provider] - 1-2 days Patient Instructions/Handouts: Chest Pain (DC) Activity/Diet/Wound Care/Special Instructions: Activity: As tolerated. Take breaks as needed. Diet: Heart healthy and carb consistent diet. Avoid salts, or foods with hidden salts such as canned or boxed foods and frozen dinners. Extra salt makes your heart work harder and traps the fluid in your body for longer. Special Instructions: Take all of your medications as directed and remember to keep all of your doctor's appointments and follow-up as needed. Thank you for allowing us to participate in your care, it was truly a pleasure having you for our patient!!! Discharge Disposition: Left Against Medical Advice
== END 2022-08-09 04:45 | disposition left against medical advice (07) ==
LOC: EC 10:29 → 6NMEDSUR 13:46
PROVIDERS: ADMIT Internal Medicine; ATTEND Internal Medicine
DX: R07.89 Other chest pain (principal); R42 Dizziness and giddiness; I71.21 Aneurysm of the ascending aorta, without rupture; Z53.29 Procedure and treatment not carried out because of patient's decision for other reasons; R61 Generalized hyperhidrosis; E78.5 Hyperlipidemia, unspecified; I95.9 Hypotension, unspecified; K59.00 Constipation, unspecified; Z79.82 Long term (current) use of aspirin; Z79.899 Other long term (current) drug therapy
CPT/HCPCS: 96372 ×2; 99285; 36415; 94760; 93005; 93017; 93306; 80053; 80048; 83735; 84484; 85025 ×2; 85610; 85730; 71046; 71275; 74174; 78452; G0378 ×3; A9500; J2785; Q9967; J1644 ×2

== ENCOUNTER → 2024-05-07 | Outpatient (CLI) | payer MEDICARE ==
[~2024-05-07] MED LIST: IODINE/POTASSIUM IODIDE 14 ML BOTTLE ONE
--- NOTE | 2024-05-13 23:55 | NM ---
EXAMINATION TYPE: NM DatScan Brain SPECT DATE OF EXAM: 05/07/2024 COMPARISON: NONE CLINICAL INDICATION: Male, 68 years old with history of R25.1 TREMOR G20.0; TECHNIQUE: 10 drops of Lugol's solution was administered 1 hour prior to injection as a thyroid bloc magaly agent. After the administration of 4.25 mCi I-123 Ioflupane DaTscan. Images obtained 3 hours p ost injection. SPECT images of the brain were acquired with axial and coronal reconstructions. FINDINGS: The DaTSCAN demonstrates reduced uptake of tracer throughout the striata. 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 [facility], , 05/13/2024 11:53 PM
== END | disposition home or self-care (01) ==
LOC: RADNMMAIN 10:42
PROVIDERS: ATTEND Psychiatry & Neurology Neurology
DX: G20.C Parkinsonism, unspecified (principal); R29.898 Other symptoms and signs involving the musculoskeletal system; R25.8 Other abnormal involuntary movements
CPT/HCPCS: 78803